=== PATIENT | female | born 1995 | race Caucasian/White ===

== ENCOUNTER 2024-12-21 10:19 | Outpatient (AMB) | payer OTHER, SELFPAY ==
--- NOTE | 2024-12-21 09:39 | A.OFFPC_ITS ---
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 Required: No Accompanied by: Self / Same As Patient Allergies bupropion (From Wellbutrin) Allergy (Mild, Verified 12/21/24 13:08) Seizure Medication List - Last Reconciled 12/21/24 by Johana Esteban PA-C No Known Home Meds Tobacco use date assessed: 12/21/24 Dental Screening Dental Screen Date: 12/21/24 Did you have a dental visit in the last 12 months?: Yes Did you have a dental problem in the last 6 months where you did not have access to dental care?: No Was dental information given to patient?: Patient has dentist HPI Annual physical-New HPI Details The patient is a 29-year-old female presenting for a new patient visit, annual physical, and confirmation of . She stopped her hormonal control pill on October 16 after approximately 10 years of use, which included the Depo-Provera shot and then oral contraceptives. She experienced 12 days of withdrawal bleeding that ended on November 16 and has not had a period since. The patient took two home tests on Thursday night and another on Thursday morning, all of which were immediately positive; an in-office urine test was also positive. She denies any bleeding or spotting. The was unplanned but she desires to continue it. Her obstetric history includes one prior at age 20, which was terminated by an elective just prior to 8 weeks gestation. The patient's past medical history is significant for a diagnosis of bipolar disorder at age 18 for which she was treated with multiple medications, including Depakote and amitriptyline, starting at age 15. She states she no longer has the condition, is off all psychiatric medications, and feels the best she has in her entire life. She also reports a history of panic disorder and currently experiences hand tremors, which she attributes to nervousness. She denies a history of seizures. She previously had an upper endoscopy due to concern for a stomach perforation from her medications, which was negative. Past surgical history includes extraction of her two bottom wisdom teeth. Her last physical exam was in 2022. She has never had a mammogram or colonoscopy. Social History - The patient recently moved with her misael joanie from [place], [place], to [place]. - She reports a history of a rough child forbes. - For the past two weeks, she has experi enced increased appetite, eating larger portions of nutritious food and feeling hungry again two hours later. [facility] Medical History (Updated 12/21/24 @ 13:10 by Johana Esteban PA-C) Annual physical exam Vertigo PTSD (post-traumatic stress disorder) Panic disorder without agoraphobia Tremor of both hands Renal cyst Bipolar disorder, unspecified Positive test Missed menses Surgical History History of tooth extraction Family History Father No problems noted. Mother No problems noted. Social History Housing: House Alcohol intake: current Alcohol intake frequency: holidays/special occasions only Patient Tobacco Use Status: Former Tobacco user e-Cigarette/Vaping Use: Currently Using service: No Current occupational status: employed Cognitive needs: No Hearing needs: No Vision needs: No Questionnaire PHQ-9 Over the last 2 weeks, how often have you been bothered by any of the following problems? 1. Little interest or pleasure in doing things: not at all 2. Feeling down, depressed, or hopeless: not at all 3. Trouble falling or staying asleep, or sleeping too much: not at all 4. Feeling tired or having little energy: not at all 5. Poor appetite or overeating: not at all 6. Feeling bad about yourself - or that you are a failure or have let yourself or your family down: not at all 7. Trouble concentrating on things, such as reading the newspaper or watching television: not at all 8. Moving or speaking so slowly that other people could have noticed. Or the opposite - being so fidgety or restless that you have been moving around a lot more than usual: not at all 9. Thoughts that you would be better off or of hurting yourself in some way: not at all Total score: 0 Depression Screening Interpretation: Negative Depression Screening Done: Yes 48020 - PHQ-9 Billing: Yes Source: Developed by Drs. Franklyn Yang, Grace Coles, Wilder Jolley and colleagues, with an educational jocelynn from [employer]. Thrive Questionnaire Date Thrive assessed: 12/21/24 I am a: Patient What is your living situation today?: I have a steady place to live Within the past 12 months, did the food you bought not last and you didn't have the money to get more?: Never true Within the past 12 months, did you worry whether your food would run out before you got money to buy more?: Never true Do you have trouble paying for medicines?: No Do you have trouble getting transportation to medical appointments?: No Do you have trouble paying your heating and electricity bill?: No Do you have trouble taking care of your child, family member or friend?: No Do you have trouble with day-to-day activities such as bathing, preparing meals, shopping, managing finances, etc.?: No Are you currently unemployed and looking for a job?: No Are you interested in more education?: No Please select the resources that you would like help with: None THRIVE Score: 0 AUDIT C Alcohol Use Questionnaire (AUDIT-C) 1. How often do you have a drink containing alcohol?: Monthly or less 2. How many drinks containing alcohol do you have on a typical day when you are drinking?: 1 or 2 3. How often do you have six or more drinks on one occasion?: Never Total Score: 1 Score Reviewed/Action Taken: No DAMION-7 AMB Questionnaire DAMION-7 Date DAMION - 7 assessed: 12/21/24 Feeling nervous, anxious, or on edge: 0 = Not at all Not being able to stop or control worryin = Not at all Worrying too much about different things: 0 = Not at all Trouble relaxin = Not at all Being so restless that it is hard to sit still: 0 = Not at all Becoming easily annoyed or irritable: 0 = Not at all Feeling afraid as if something awful might happen: 0 = Not at all Total DAMION-7 score (0-4 normal; 5-9 mild; 10-14 moderate; 15-21 severe): 0 Source: Developed by Drs. Franklyn Yang, Grace Coles, Wilder Jolley and colleagues, with an educational jocelynn from [employer]. DAMION-7 Assessment Billing DAMION-7 Assessment Tool: DAMION-7 Assessment 71205 Review of Systems Const Details: - Constitutional: Reports increased appetite and hunger. - GI: Denies nausea. - : Reports urinary frequency. 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 - Neurological: Reports hand tremors, which she relates to nervousness. - MSK: Denies back pain. All systems reviewed & are unremarkable except as noted in HPI and below Physical exam (Primary Care) Vital Signs: Last Vital Signs Temp 98.1 F 12/21/24 10:29 Pulse 78 12/21/24 10:29 Resp 14 12/21/24 10:29 BP 110/54 L 12/21/24 10:29 Pulse Ox 99 12/21/24 10:29 Oxygen Delivery Method Room Air 12/21/24 10:29 Care Plan Goal for BP management: <140/90 at Goal BMI result Body Mass Index 32.4 BMI Assessment/Plan discussion: High BMI High, discussed plan: lifestyle, weight reduction, dietary, physical activity, alcohol moderation and other Tobacco/Smoking Status: Tobacco use Status Tobacco use date assessed 12/21/24 12/21/24 09:46 Patient Tobacco Use Status Former Tobacco user 12/21/24 10:34 e-Cigarette/Vaping Use Currently Using 12/21/24 10:34 PHQ-9: PHQ-9 Score PHQ-9: Total score 0 12/21/24 10:34 Depression Screening Interpretation: Negative Thrive Assessment: Date of Thrive Assessment Date Thrive assessed 12/21/24 12/21/24 09:46 Const Other: Appearance: Alert. Oriented X3. No acute distress. Head: Normal external exam. Normocephalic. Atraumatic. Eyes: Pupils are equal, round, and reactive to light. Extraocular movements intact. Conjunctiva and sclera normal. Eyelids normal. Ears: External auditory canal normal. Tympanic membranes normal. Throat: Pharynx normal. Uvula midline. Moist mucous membranes. Neck: Normal inspection. Neck supple. Full range of motion. No adenopathy. Thyroid Normal. No meningeal signs. No neck mass noted. Cardiovascular: Normal heart rate and rhythm. Heart sound normal. No murmurs noted. Pulses normal throughout. Respiratory: No respiratory distress. Painless inspiration. Breath sounds normal. No wheezes/rales/rhonchi noted. Chest nontender. No accessory muscle usage noted or decreased air movement noted. Abdomen: Soft and nontender. Bowel sounds normal in all 4 quadrants. No distention noted. No organomegaly noted. No visible injury noted. Back: No costovertebral angle tenderness. Full range of motion noted. Skin: Skin warm and dry. Normal skin color. Normal skin turgor. No rashes/lesions/lacerations noted. Extremities: No lower extremity edema. Extremities exhibit normal range of motion. Extremities nontender. Neuro: Oriented X 3. No motor deficit. No sensory deficit. Reflexes normal. Office Procedures Flu Questionnaire Does the patient have a severe egg allergy?: No Does the patient have severe life threatening allergies?: No Does the patient have a fever or illness today?: No Has the patient ever had Guillain-Osborn Syndrome?: No Has the patient ever had any past reaction to a flu shot?: No Immunizations Fluarix [id number] (PF) 45 mcg (15 mcg x 3)/0.5 mL IM syringe Performing Provider: Johana Esteban PA-C [facility] Documented (not given) by: RAMU Fitzpatrick on 12/21/24 10:35 Reason Not Given: Patient Refused Results Reviewed Results Reviewed: - Laboratories: In-office urine test was positive. Coding Level of Care Code New Pt Level 4 (19609) New Pt Prev Care 18-39yr(59250 Diagnoses Annual physical exam Z00.00 Z34.90 Bipolar disorder, unspecified F31.9 Panic disorder without agoraphobia F41.0 Additional Codes PHQ-9 - 19187 - PHQ-9 Billing: Yes ([id number]) DAMION-7 Assessment Billing - DAMION-7 Assessment Tool: DAMION-7 Assessment 79085 ([id number]) Time Spent (min) 60 Assessment & Plan Assessment & Plan (1) Annual physical exam: Code(s): Z00.00 - Encounter for general adult medical examination without abnormal findings Category: Medical Plan: The patient is establishing care with the practice. A physical exam was conducted. Baseline blood work including a CBC, CMP, and inflammatory markers will be ordered. A follow-up visit is scheduled for three months. (2) : Code(s): Z34.90 - Encounter for supervision of normal , unspecified, unspecified trimester Category: Medical Plan: The patient presents with multiple positive home and in-office urine tests. Based on her withdrawal bleeding in early November, her gestational age is estimated to be around 6-8 weeks. She desires to continue the . Will order a serum hCG blood test to confirm. A referral will be placed to [facility] for care. An order for an ultrasound will be placed, with the under standing that it may not be performed until blood work confirms a gestational age at which the fetus is visible, typically around 8 weeks. Prescribed multivitamins. (3) Bipolar disorder, unspecified: Code(s): F31.9 - Bipolar disorder, unspecified Category: Medical Plan: The patient reports a history of bipolar disorder diagnosed at age 18, but she is currently off all medications and states she feels the best she has ever felt. No medication refills are needed at this time. Will continue to monitor her mental well-being. (4) Panic disorder without agoraphobia: Code(s): F41.0 - Panic disorder [episodic paroxysmal anxiety] Category: Medical Plan: The patient affirms a history of panic disorder and currently experiences nervousness related to her new . No active intervention is planned at this visit. Plan Plan Patient was informed and verbally consented to the use of an ambient scribe for clinic note documentation during this visit. 1. New Patient Establishment Of Care The patient is establishing care with the practice. A physical exam was conducted. Baseline blood work including a CBC, CMP, and inflammatory markers will be ordered. A follow-up visit is scheduled for three months. 2. , Unconfirmed The patient presents with multiple positive home and in-office urine tests. Based on her withdrawal bleeding in early November, her gestational age is estimated to be around 6-8 weeks. She desires to continue the . Will order a serum hCG blood test to confirm. A referral will be placed to [facility] for care. An order for an ultrasound will be placed, with the understanding that it may not be performed until blood work confirms a gestational age at which the fetus is visible, typically around 8 weeks. Prescribed multivitamins. 3. History Of Bipolar Disorder The patient reports a history of bipolar disorder diagnosed at age 18, but she is currently off all medications and states she feels the best she has ever felt. No medication refills are needed at this time. Will continue to monitor her mental well-being. 4. History Of Panic Disorder The patient affirms a history of panic disorder and currently experiences nervousness related to her new . No active intervention is planned at this visit. I introduced myself and explained that the visit would serve as her new patient appointment and physical exam. I confirmed that her in-office urine test was positive, corroborating her multiple positive home tests. We discussed her desire to keep the and her associated anxieties about its viability. I outlined the plan to order blood work, including a CBC, CMP, and serum hCG, and provided instructions for fasting 8-10 hours prior to the test. I explained that I would refer her to the [facility] for care, clarifying that they do not handle deliveries, which would likely occur at [facility] or [facility]. I also explained that while I would order an ultrasound, it would likely not be performed until the blood work is completed and confirms a gestational age of around 8 weeks, as imaging too early may not be conclusive. I prescribed a multivitamin and explained its importance. We agreed on a three-month follow-up visit, and I advised her that I would call with any abnormal lab results. Orders: Orders UA CC w/rflx Micro + Cult Today Z00.00 - Encounter for general adult medical examination without abnormal findings HCG Quantitative Today N92.6 - Irregular menstruation, unspecified Lipid Panel Today Z00.00 - Encounter for general adult medical examination without abnormal findings Liver Panel Today Z00.00 - Encounter for general adult medical examination without abnormal findings Magnesium Today Z00.00 - Encounter for general adult medical examination without abnormal findings TSH reflex Free T4 Today Z00.00 - Encounter for general adult medical examination without abnormal findings Vitamin B12 and Folate Today Z00.00 - Encounter for general adult medical examination without abnormal findings Influenza [id number] Immunization Today Z23 - Encounter for immunization Ur Preg Test Today N92.6 - Irregular menstruation, unspecified Complete Blood Count Auto Diff Today Z00.00 - Encounter for general adult medical examination without abnormal findings Comprehensive [place]. Panel Fast Today Z00.00 - Encounter for general adult medical examination without abnormal findings Erythrocyte Sedimentation Rate Today Z00.00 - Encounter for general adult medical examination without abnormal findings C Reactive Protein Today Z00.00 - Encounter for general adult medical examination without abnormal findings Hemoglobin A1c Today Z00.00 - Encounter for general adult medical examination without abnormal findings Vitamin D 25-OH Total Today Z00.00 - Encounter for general adult medical examination without abnormal findings US OB pelvic and transvaginal Today N92.6 - Irregular menstruation, unspecified, Z32.01 - Encounter for test, result positive Referrals SOCK BOARDER Referral F31.9 - Bipolar disorder, unspecified, K08.409 - Partial loss of teeth, unspecified cause, unspecified class, N28.1 - Cyst of kidney, acquired, N92.6 - Irregular menstruation, unspecified, Z32.01 - Encounter for test, result positive Medications: New [id number] acid 27-800 mg-mcg ( Multi) 1 tab PO DAILY 90 tabs 3RF N92.6 - Irregular menstruation, unspecified, Z32.01 - Encounter for test, result positive Patient Instructions: - Please go to the lab for blood work. - You must fast for 8 to 10 hours before your blood test, meaning nothing to eat or drink except for plain water. - Since you had coffee with cream today, please go for the blood test tomorrow or another day. - I have sent a prescription for multivitamins to your pharmacy. - We have referred you to the [facility] ([facility]) specialists for your care. - We will try to order an ultrasound, but you must get your blood work done first. - We will call you with your lab results. - Please sign up for the patient portal. - Your next follow-up appointment here will be in three months.
[2024-12-21 10:29] VITALS: BP 110/54; PULSE 78; RESP 14; TEMP 36.7; O2SAT 99; BMI 32.4
== END 2024-12-21 11:07 | disposition home or self-care (01) ==
LOC: HO.HMCSH 10:19
PROVIDERS: PCP Physician Assistant Medical; Visit Provider Physician Assistant Medical
DX: Z00.00 Encounter for general adult medical examination without abnormal findings (principal); N92.6 Irregular menstruation, unspecified; F31.9 Bipolar disorder, unspecified; F41.0 Panic disorder [episodic paroxysmal anxiety]; Z23 Encounter for immunization; Z34.90 Encounter for supervision of normal pregnancy, unspecified, unspecified trimester

== ENCOUNTER 2024-12-21 10:19 | Outpatient (REF) | payer OTHER, SELFPAY ==
[2024-12-21 17:57] LABS: Appearance Urine Clear; Glucose Urine UA Negative (Negative); PH 6.5 (5.0-9.0); Specific Gravity - Urine <= 1.005 (1.005-1.025)
[2024-12-21 17:58] LABS: UPreg QC Valid YES
== END 2024-12-21 10:20 | disposition home or self-care (01) ==
LOC: HO.LAB 10:19
PROVIDERS: PCP Physician Assistant Medical; Visit Provider Physician Assistant Medical
DX: Z00.00 Encounter for general adult medical examination without abnormal findings (principal); Z34.90 Encounter for supervision of normal pregnancy, unspecified, unspecified trimester; Z28.82 Immunization not carried out because of caregiver refusal; N92.6 Irregular menstruation, unspecified; F31.9 Bipolar disorder, unspecified; F41.0 Panic disorder [episodic paroxysmal anxiety]
CPT/HCPCS: 81003; 81025; 90471; 96127

== ENCOUNTER 2024-12-22 08:08 | Outpatient (REF) | payer OTHER, SELFPAY ==
[2024-12-22 11:29] LABS: MANUAL DIFF FLAG NO
[2024-12-22 11:36] LABS: Hematocrit 39.6 % (37.0-47.0); Hemoglobin 13.1 g/dl (12.0-16.0); Imm Gran Abs Auto 0.04 X10*3/uL (0.00-0.03); Imm Gran Pct Auto 0.5 % (0.0-0.4); Lymphocytes Absolute Auto 1.9 X10*3/uL (1.2-4.9); Mean Corpuscular HGB Conc 33.1 g/dl (31.0-35.0); Mean Corpuscular Hemoglobin 29.0 pg (27.0-33.0); Mean Corpuscular Volume 87.6 fL (80.0-98.0); NRBC Abs Auto 0.000 X10*3/uL (0.0-0.012); NRBC Pct Auto 0.0 /100WBC (0.0-0.2); Platelet Count 272 X10*3/uL (160-400); Red Blood Count 4.52 X10*6/uL (4.20-5.50); White Blood Count 8.7 X10*3/uL (4.8-10.8)
[2024-12-22 12:08] LABS: Alanine Aminotransferase 18 U/L (0-31); Albumin Level 4.2 g/dL (3.5-5.0); Alkaline Phosphatase 59 U/L (39-117); Anion Gap 12 (12-20); Aspartate Amino Transferase 21 U/L (5-31); Blood Urea Nitrogen 8 mg/dL (9-16); Calcium 8.9 mg/dL (8.4-10.2); Carbon Dioxide 24 mmol/L (22-29); Chloride 107 mmol/L (96-108); Cholesterol 157 mg/dL (<200); Estimated Glomerular Filt Rate > 60; HDL Cholesterol 50 mg/dL (>40); Magnesium 1.8 mg/dL (1.6-2.6); Potassium 3.7 mmol/L (3.3-5.1); Sodium 139 mmol/L (135-145); Total Protein 6.6 g/dL (6.5-8.0); Triglycerides 52 mg/dL (<150)
[2024-12-22 12:36] LABS: Folate 10.4 ng/mL (> or = 4.0); Vitamin B12 363 pg/mL (200-900)
== END 2024-12-22 08:09 | disposition home or self-care (01) ==
LOC: HO.WFDLDS 08:08
PROVIDERS: Visit Provider Physician Assistant Medical
DX: Z00.00 Encounter for general adult medical examination without abnormal findings (principal); N92.6 Irregular menstruation, unspecified; Z13.6 Encounter for screening for cardiovascular disorders; Z13.1 Encounter for screening for diabetes mellitus; Z13.21 Encounter for screening for nutritional disorder
CPT/HCPCS: 36415; 80053; 80061; 80076; 82248; 82306; 82607; 82746; 83036; 83735; 84443; 84702; 85025; 85652; 86140

== ENCOUNTER 2024-12-26 14:32 | Outpatient (REF) | payer OTHER, SELFPAY ==
--- NOTE | ~2024-12-26 | US_ITS ---
EXAMINATION: US OBSTETRICAL ULTRASOUND CLINICAL INFORMATION: N92.6 - Irregular menstruation, unspecified + , positive hCG = 22,258 on 12/22/2024 COMPARISON: None available. LMP: Unknown. TECHNIQUE: Grayscale and color Doppler imaging was performed transabdominally FINDINGS: There is a single intrauterine gestational sac with visible yolk sac, embryo/fetus, with detectable cardiac activity. There is no significant subchorionic hemorrhage or hematoma. HR: 132 bpm. CRL (crown rump length): 0.6 cm (6 weeks 4 days). LEE (estimated date of delivery): 08/17/2025. MATERNAL ADNEXA: The right maternal ovary measures 2.3 x 1.5 x 1.9 cm. The left maternal ovary measures 3.2 x 1.8 x 2.7 cm. There is no significant maternal adnexal mass. No maternal pelvic ascites. US/US OB <= 14 weeks fetus IMPRESSION: Single living intrauterine gestation with ultrasound gestational age of 6 weeks 4 days. Estimated date of delivery is 08/17/2025. Electronically signed by: Raphael Carias MD 12/26/2024 03:46 PM EST
== END 2024-12-26 14:33 | disposition home or self-care (01) ==
LOC: HO.HMGCX 14:32
PROVIDERS: PCP Physician Assistant Medical; Visit Provider Physician Assistant Medical
DX: Z34.91 Encounter for supervision of normal pregnancy, unspecified, first trimester (principal); N92.6 Irregular menstruation, unspecified
CPT/HCPCS: 76801

== ENCOUNTER → 2024-12-26 14:43 | Outpatient (BNV) | payer OTHER, SELFPAY | PROVIDERS: PCP Physician Assistant Medical; Visit Provider Radiology Diagnostic Radiology | DX: O26.851 Spotting complicating pregnancy, first trimester (principal); Z3A.01 Less than 8 weeks gestation of pregnancy | CPT/HCPCS: 76801 ==

== ENCOUNTER 2024-12-26 15:37 | Outpatient (AMB) | payer OTHER, SELFPAY ==
[2024-12-26 15:37] VITALS: BP 108/62; BMI 32.7
--- NOTE | 2024-12-26 15:37 | A.OFFVIS_ITS ---
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 No complaints no pelvic cramping and or pain Urine test was done a week ago HCG 63033 on 12/22 Ultrasound done today unofficial report shows IUP at 6 weeks and 3 days of gestation with heart rate at 132 beats per minute [facility] Medical History Annual physical exam Vertigo PTSD (post-traumatic stress disorder) Panic disorder without agoraphobia Tremor of both hands Renal cyst Bipolar disorder, unspecified Positive test Missed menses Surgical History History of tooth extraction Family History Father No problems noted. Mother No problems noted. Social History Housing: House Alcohol intake: current Alcohol intake frequency: holidays/special occasions only Patient Tobacco Use Status: Former Tobacco user e-Cigarette/Vaping Use: Currently Using Patient : Yes service: No Current occupational status: employed Cognitive needs: No Hearing needs: No Vision needs: No Physical Exam Vital Signs: Last Vital Signs BP 108/62 12/26/24 15:37 BMI result Body Mass Index 32.7 Assessment & Plan Assessment & Plan (1) Early stage of : Code(s): Z34.90 - Encounter for supervision of normal , unspecified, unspecified trimester Category: Medical Plan: vitamin 1 tablet p.o. q.d., SAB warnings given to patient, she is to call or go to emergency room in case of pelvic cramping and or bleeding. Instructions given the patient to schedule an initial OB appointment within 1-2 weeks Coding Level of Care Code Est Pt Level 3 (82161) Diagnoses Early stage of Z34.90
== END 2024-12-26 16:17 | disposition home or self-care (01) ==
LOC: HO.HWS 15:37
PROVIDERS: PCP Physician Assistant Medical; Visit Provider Obstetrics & Gynecology
DX: Z34.90 Encounter for supervision of normal pregnancy, unspecified, unspecified trimester (principal)
CPT/HCPCS: 99213